=== PATIENT | female | born 1945 | race Caucasian/White ===

== ENCOUNTER 2016-04-11 10:18 | Day surgery (SDC) | payer MEDICARE, OTHER ==
[2016-04-11 10:48] VITALS: BP 156/96; PULSE 70; RESP 18; TEMP 98.7; O2SAT 97
[2016-04-11 11:34] VITALS: BP 180/91; PULSE 67; RESP 18; O2SAT 98
[2016-04-11 11:51] VITALS: BP 166/92; PULSE 67; RESP 18; O2SAT 98
[2016-04-11] MEDS ORDERED: SODIUM BICARBONATE 8.4% INJ 50 ML ONE (12:03)
[2016-04-11] MEDS ORDERED: LIDOCAINE HCL 1% PF 30 ML VIAL ONE (12:03)
--- NOTE | 2016-04-11 12:12 | RADRPT ---
EXAM DATE/TIME: 04/11/2016 10:54 [place] COMPARISON: No previous studies available for comparison. EXTERNAL COMPARISON: INDICATIONS : Left elbow effusion. MEDICAL HISTORY : Hypercholesterolemia. Left radial head fracture. Thyroid disease. SURGICAL HISTORY : Hysterectomy. Knee surgery. ENCOUNTER: Initial ACUITY: 4 - 6 months PAIN SCORE: 3/10 LOCATION: Left elbow. FLUID: Total volume of 2 cc of clear, yellow fluid was removed. Fluid was sent to lab for ordered studies. Post procedure scanning reveals no hematoma or other complication. TECHNIQUE: 1. Ultrasound guidance for needle aspiration. 2. Aspiration. The risks, benefits, and alternatives to ultrasound guided aspiration were explained to the patient i n detail including the risk of bleeding and infection. Written and verbal informed consent was obtai lela. Under direct ultrasound visualization 2 separate punctures were obtained. Material was obtained for culture and crystal analysis. The material in the elbow is thick and very viscous and has the appea lui of gout. CONCLUSION: Uncomplicated ultrasound guided aspiration. Cultures and fluid analysis is pending. Daniel Nolan MD FACR on April 11, 2016 at 12:06 Board Certified Radiologist. This report was verified electronically.
[2016-04-11 13:07] LABS: WBC, SYNOVIAL FLUID 850 /MM3 (0-200)
[2016-04-22] MEDS ORDERED: ERGO1CAP10 PO (15:17)
[2016-04-22] MEDS ORDERED: [UNRECOGNIZED DRUG - CODE] PO (15:17)
[2016-04-22] MEDS ORDERED: NU-I150C PO (15:17)
[2016-06-22] MEDS ORDERED: SERT-129 PO (10:04)
[2016-06-22] MEDS ORDERED: SIMV40TA PO (10:04)
[2016-06-22] MEDS ORDERED: LEVO50TA4 PO (10:04)
== END 2016-04-11 11:54 | disposition home or self-care (01) ==
LOC: HRAD 10:18
PROVIDERS: ATTEND Orthopaedic Surgery Sports Medicine
DX: M25.422 Effusion, left elbow (principal); B95.62 Methicillin resistant Staphylococcus aureus infection as the cause of diseases classified elsewhere
CPT/HCPCS: 10160; 20606; 76942; 86403; 87070; 87186; 87205; 89051; 89060

== ENCOUNTER 2016-04-13 09:26 | Inpatient (IN) | payer MEDICARE, OTHER ==
[~2016-04-13] VITALS: Ht 162.6 cm; Wt 85.2 kg
[2016-04-14] MEDS ORDERED: SIMV40TA PO (09:52)
[2016-04-14] MEDS ORDERED: LEVO50TA4 PO (09:52)
[2016-04-14] MEDS ORDERED: HYDR-3516 PO (09:52)
[2016-04-14] MEDS ORDERED: SERT-129 PO (09:52)
[2016-04-15] MEDS: CHLORHEXIDINE GLUCONATE 4% SOLN 120 ML BTL TOP SCH (07:00)
[2016-04-15] MEDS ORDERED: ceFAZolin 2 GM PREMIX 50 ML IV SCH (07:00)
[2016-04-15] MEDS: POVIDONE IODINE 7.5% SCRUB 118 ML BOTTLE TOP SCH (07:00)
[2016-04-15] MEDS ORDERED: INSULIN HUMAN REGULAR 1,000 UNITS/10 ML VIAL SQ PRN (07:00)
[2016-04-15] MEDS: SODIUM CHLORID 0.9% 500 ML IV SCH ×2 (07:00→23:40)
[2016-04-15] MEDS ORDERED: METOPROLOL TARTRATE 25 MG TAB PO PRN (07:00)
[2016-04-15] MEDS: LEVOTHYROXINE SODIUM 50 MCG TAB PO SCH (07:18)
[2016-04-15] MEDS ORDERED: HYDR-3288 PO (07:23)
[2016-04-15] MEDS ORDERED: MISCELLANEOUS PHARMACY INFORMATION XX ONE (07:30)
[2016-04-15] MEDS ORDERED: ONDANSETRON HCL 4 MG/2 ML VIAL IVP PRN (07:30)
[2016-04-15] MEDS ORDERED: MORPHINE SULFATE 30 MG/30 ML PCA IV SCH (07:30)
[2016-04-15] MEDS ORDERED: diphenhydrAMINE HCL 25 MG CAP PO PRN (07:30)
[2016-04-15] MEDS ORDERED: ACETAMINOPHEN/HYDROcodone 325 MG/7.5 MG TAB PO PRN (07:30)
[2016-04-15] MEDS ORDERED: MORPHINE SULFATE 4 MG/ML INJ IV PUSH PRN (07:30)
[2016-04-15] MEDS ORDERED: Post-op Orders (for Pharmacy) MISC XX ONE (07:30)
[2016-04-15] MEDS ORDERED: SODIUM CHLORIDE 0.9% FLUSH 5 ML FLUSH IVF PRN (07:30)
[2016-04-15] MEDS ORDERED: NALOXONE HCL 0.4 MG/ML AMP IV PRN (07:30)
[2016-04-15] MEDS ORDERED: MISCELLANEOUS NURSING INFORMATION XX PRN (07:30)
[2016-04-15] MEDS ORDERED: MAGNESIUM HYDROXIDE SUSP 30 ML CUP PO PRN (07:30)
[2016-04-15] MEDS ORDERED: IBUP200C PO (07:31)
[2016-04-15 07:34] VITALS: BP 147/84; PULSE 79; RESP 18; TEMP 99.2; O2SAT 97
[2016-04-15] MEDS: LACTATED RINGER'S 1000 ML IV SCH ×2 (07:40→21:09)
[2016-04-15 08:11] LABS: AUTOMATED NEUTROPHIL # 4.8 TH/MM3 (1.8-7.7); BASOPHIL % 0.4 % (0.0-2.0); EOSINOPHIL # 0.1 TH/MM3 (0-0.4); EOSINOPHIL % 1.3 % (0.0-4.0); HEMATOCRIT 30.9 % (35.0-46.0); HEMO FLAGS DIFF FINAL; LYMPH % 21.3 % (9.0-44.0); LYMPHOCYTE # 1.5 TH/MM3 (1.0-4.8); MEAN CELL VOLUME 78.6 FL (80.0-100.0); MEAN CORPUSCULAR HEMOGLOBIN 25.7 PG (27.0-34.0); MEAN CORPUSCULAR HGB CONC 32.7 % (32.0-36.0); MONO % 6.6 % (0.0-8.0); NEUT % 70.4 % (16.0-70.0); PLATELET COUNT 376 TH/MM3 (150-450); RED BLOOD COUNT 3.94 MIL/MM3 (4.00-5.30); RED CELL DISTRIBUTION WIDTH 17.8 % (11.6-17.2); WHITE BLOOD COUNT 6.9 TH/MM3 (4.0-11.0)
[2016-04-15] MEDS ORDERED: GENTAMICIN SULFATE 80 MG/2 ML VIAL ONE (08:59)
[2016-04-15] MEDS: SERTRALINE HCL 100 MG TAB PO SCH (09:00)
[2016-04-15] MEDS: MULTIVITAMINS/MINERALS THERAPEUTIC TAB PO SCH (09:00)
[2016-04-15] MEDS ORDERED: PROPOFOL 200 MG/20 ML AMP IV ONE (10:01)
[2016-04-15] MEDS ORDERED: LACTATED RINGER'S 1000 ML INJ 1,000 ML IV ONE (10:01)
[2016-04-15] MEDS ORDERED: ONDANSETRON HCL 4 MG/2 ML VIAL IV PUSH ONE (10:01)
[2016-04-15] MEDS ORDERED: FAMOTIDINE 20 MG/2 ML VIAL ONE (10:15)
[2016-04-15] MEDS ORDERED: DEXAMETHASONE SOD PHOS 4 MG/ML VIAL ONE (10:15)
[2016-04-15] MEDS ORDERED: MIDAZOLAM HCL 2 MG/2 ML VIAL ONE (10:15)
[2016-04-15] MEDS ORDERED: VANCOMYCIN HCL 1000 MG VIAL ONE (11:07)
[2016-04-15] MEDS ORDERED: SODIUM CHLOR 0.9% 250 ML INJ 250 ML ONE (11:09)
[2016-04-15] MEDS ORDERED: MORPHINE SULFATE 4 MG/ML INJ ONE (11:49)
[2016-04-15] MEDS ORDERED: *morphine SULFATE 8 MG/ML PERIprocedure ONLY ONE ×2 (12:10→12:45)
[2016-04-15] MEDS ORDERED: *ONDANSETRON 4 MG VIAL PERIprocedural Use ONLY ONE (12:17)
[2016-04-15] MEDS ORDERED: DO NOT ADM ANY ANTICOAGULANT DRUGS XX PRN (12:30)
[2016-04-15] MEDS: DEXT 5%-NACL 0.45% 1000 ML INJ 1,000 ML IV SCH ×2 (12:30→22:43)
[2016-04-15] MEDS ORDERED: *HYDROmorphone PF 1 MG VIAL PERIprocedural Use ONLY ONE (13:03)
--- NOTE | 2016-04-15 13:19 | PD.ORT.PN ---
Subjective Post Op Day #: 0 Objective Vitals Vital Signs Date Time Temp Pulse Resp B/P Pulse Ox O2 Delivery O2 Flow Rate FiO2 04/15/16 13:00 85 12 115/52 97 04/15/16 12:45 78 12 160/87 95 04/15/16 12:31 12 04/15/16 12:30 72 12 179/97 97 04/15/16 12:15 78 12 172/100 97 Nasal Cannula 2 04/15/16 12:00 98.1 75 10 171/97 98 Nasal Cannula 2 04/15/16 07:34 99.2 79 18 147/84 97 I/O 04/14/16 04/14/16 04/14/16 04/15/16 04/15/16 04/15/16 07:00 15:00 23:00 07:00 15:00 23:00 Intake Total 1200 ml Balance 1200 ml Intake Oral 200 ml Other 1000 ml Result Diagram: 04/15/16 0722 Assessment & Plan Assessment and Plan s/p I&D L septic elbow Gentle ROM daily dressing changes currently on vanco consulted ID ordered PICC line likely will need IV abx after d/c d/c planning home vs snf f/up dr. vieira 2 weeks Lonnie Murray Apr 15, 2016 13:19
--- NOTE | 2016-04-15 13:20 | HHI.DCPOC ---
Discharge Care Plan Diagnosis: (1) Infection of elbow Your Health Problems Are: Difficulty with ADL Goals to Promote Your Health * To prevent worsening of your condition and complications * To maintain your health at the optimal level Directions to Meet Your Goals Take your medications as prescribed Follow your dietary instruction Follow activity as directed Keep your appointments as scheduled Take your immunizations and boosters as scheduled If your symptoms worsen call your PCP, if no PCP go to Urgent Care Center or Emergency Room Smoking is Dangerous to Your Health. Avoid second hand smoke Call the 24-hour hour crisis hotline for domestic abuse at Lonnie Murray Apr 15, 2016 13:20
--- NOTE | 2016-04-15 13:22 | HHI.FF ---
Face to Face Verification Diagnosis: (1) Infection of elbow Physical Therapy Safety evaluation Additional Instructions s/p I&D L elbow. IV abx. Nursing RN: 3 days/week x 2 weeks Nursing: Dressing changes Dressing Changes: Daily dressing change I have seen patient Nguyen Caro on 04/15/16. My clinical findings support the need for the requested home health care services because: Limited ability to care for self High risk of falls I certify that my clinical findings support that this patient is homebound because: Post-op weakness Unsteady gait/balance Lonnie Murray Apr 15, 2016 13:21
--- NOTE | 2016-04-15 13:40 | EKG ---
Date Performed: 04/15/2016 Time Performed: 07:09:31 PTAGE: 70 years EKG: Sinus rhythm MINIMAL ST DEPRESSION BORDERLINE ECG NO PREVIOUS TRACING DOCTOR: Brooke Kumar Interpretating Date/Time 04/15/2016 13:35:10
[2016-04-15 18:00] VITALS: BP 171/88; PULSE 83; RESP 18; TEMP 98.4; O2SAT 97
[2016-04-15 18:27] VITALS: BP 132/66
[2016-04-15 20:00] VITALS: BP 128/63; PULSE 86; RESP 21; TEMP 99.1; O2SAT 92
[2016-04-15] MEDS: DOCUSATE SODIUM 50 MG/SENNA 8.6 MG TAB PO SCH (21:05)
[2016-04-15] MEDS: SODIUM CHLORIDE 0.9% FLUSH 5 ML FLUSH IVF SCH (21:06)
[2016-04-15] MEDS: PCA - TOTAL MG MORPHINE DELIVERED PER SHIFT SCH (21:08)
--- NOTE | 2016-04-15 21:25 | PD.CONS ---
HPI Service [facility] Consult Requested By Dr. Gold Reason for Consult Medical management Primary Care Physician No Primary Care Physician Diagnoses: History of Present Illness This is a 70-year-old female with past medical history as stated below, who presents with [facility] for an elective incision and debridement of the left elbow. The patient states that this past August she fell over her right knee sustaining a fracture to the right knee and to the left elbow. The patient states that the right knee fracture was operated and healed successfully. However she states that she also had a left elbow fracture which was small at the time was treated conservatively. The patient is originally from [place] and comes out to [place] for the winter time. She states that back in [place] she has an orthopedic surgeon who operated on the left elbow and after the surgery the patient Developing warmth, swelling and erythema in the joint. The patient was then seen and brought in for incision and drainage. The patient states she had fluid drained from the left elbow which in our records showed degenerative 30th increased WBC of 850, 3500 red blood cells and 98% neutrophils. Gram stain developed MRSA. The patient denies any fevers or chills, nausea vomiting, abdominal pain or diarrhea. The patient also denies chest pain, shortness of breath and states that the pain in the left elbow is minimal Review of Systems Other As per history of present illness, other systems reviewed by me and negative. Past Family Social History Allergies: Coded Allergies: *MDRO Multi-Drug Resistant Organism (Verified Adverse Reaction, Unknown, ) MRSA (elbow)-04/11/16 Past Medical History 1. Hypothyroidism. 2. Depression. 3. Hyperlipidemia Past Surgical History 1. Right knee fracture surgical repair. 2. Total abdominal hysterectomy with bilateral salpingo-oophorectomy. 3. Cervical neck fusion of C5-C6 Active Ordered Medications Current Medications Medications (Trade) Dose Ordered Sig/Micah Route Start Time Stop Time Status Last Admin Lactated Ringer's 1,000 ml @ 30 mls/hr Q24H IV 04/15/16 07:00 04/15/16 07:40 (NS 500 ml Inj) 500 ml @ 30 mls/hr [id number] IV 04/15/16 07:00 04/16/16 06:59 (Betadine 7.5% Scrub) 1 applic ONCE TOP 04/15/16 07:00 04/18/16 06:59 04/15/16 07:00 (Hibiclens 4% Top Soln) 1 applic ONCE TOP 04/15/16 07:00 04/18/16 06:59 (Synthroid) 50 mcg DAILY@06 PO 04/15/16 07:18 Sertraline HCl 100 mg 100 mg DAILY PO 04/15/16 09:00 (D5W-1/2 NS 1000 ml Inj) 1,000 ml @ 100 mls/hr Q10H IV 04/15/16 07:17 04/15/16 12:30 (NS Flush) 2 ml UNSCH PRN IVF 04/15/16 07:30 (NS Flush) 2 ml BID IVF 04/15/16 09:00 04/15/16 21:06 (Heide-Colace) 1 tab BID PO 04/15/16 09:00 04/15/16 21:05 (Milk Of Magnesia Liq) 10 ml Q12H PRN PO 04/15/16 07:30 Miscellaneous Information UNSCH PRN XX 04/15/16 07:30 ([place] 7.5-325 Mg) 1 tab Q4H PRN PO 04/15/16 07:30 ([place] 7.5-325 Mg) 2 tab Q6H PRN PO 04/15/16 07:30 (Morphine Inj) 3 mg Q3H PRN IV PUSH 04/15/16 07:30 (Zofran Inj) 4 mg Q4H PRN IVP 04/15/16 07:30 (Theragran M Tab) 1 tab DAILY PO 04/15/16 09:00 (Benadryl) 25 mg Q6H PRN PO 04/15/16 07:30 (Narcan Inj) 0.4 mg UNSCH PRN IV 04/15/16 07:30 (Morphine 1 Mg/ ml GLASS POLISHER) 30 mg UNSCH IV 04/15/16 07:30 04/16/16 07:29 04/15/16 12:31 GLASS POLISHER Dosage Infused (Pha) 1 1 Q8HR .XX 04/15/16 14:00 04/15/16 21:08 (Vancomycin Inj/ NS 250 ml Inj) 250 ml @ 250 mls/hr Q12H IV 04/15/16 23:00 Miscellaneous Information ALL NURSING DEPARTME... UNSCH PRN XX 04/15/16 12:30 04/16/16 12:29 (Pneumovax-23 Inj) 25 mcg ONCE ONCE IM 04/16/16 10:00 04/16/16 10:01 (Ambien) 5 mg HS PRN PO 04/15/16 21:00 Family History Patient denies any family history of diabetes, hypertension, cancer Social History The patient denies smoking. The patient states she drinks alcohol daily. She states she drinks 40 ounces of bourbon every day. The patient is and lives with . The patient has 2 daughters that live at home in [place]. Physical Exam Vital Signs Vital Signs Date Time Temp Pulse Resp B/P Pulse Ox O2 Delivery O2 Flow Rate FiO2 04/15/16 21:08 18 04/15/16 18:27 132/66 04/15/16 18:00 98.4 83 18 171/88 97 04/15/16 17:40 98.5 83 16 151/82 94 Nasal Cannula 2 04/15/16 17:00 82 14 151/82 96 04/15/16 16:00 80 14 121/75 96 04/15/16 15:00 82 12 120/70 97 04/15/16 14:00 79 12 129/73 95 04/15/16 13:30 79 12 145/79 97 04/15/16 13:15 80 12 148/81 94 04/15/16 13:00 85 12 115/52 97 04/15/16 12:45 78 12 160/87 95 04/15/16 12:31 12 04/15/16 12:30 72 12 179/97 97 04/15/16 12:15 78 12 172/100 97 Nasal Cannula 2 04/15/16 12:00 98.1 75 10 171/97 98 Nasal Cannula 2 04/15/16 07:34 99.2 79 18 147/84 97 Physical Exam GENERAL: This is a well-nourished, well-developed patient, in no apparent distress. SKIN: No rashes, ecchymoses or lesions. Cool and dry. HEAD: Atraumatic. Normocephalic. No temporal or scalp tenderness. EYES: Pupils equal round and reactive. Extraocular motions intact. No scleral icterus. No injection or drainage. ENT: Nose without bleeding, purulent drainage or septal hematoma. Throat without erythema, tonsillar hypertrophy or exudate. Uvula midline. Airway patent. NECK: Trachea midline. No JVD or lymphadenopathy. Supple, nontender, no meningeal signs. CARDIOVASCULAR: Regular rate and rhythm without murmurs, gallops, or rubs. RESPIRATORY: Clear to auscultation. Breath sounds equal bilaterally. No wheezes , rales, or rhonchi. GASTROINTESTINAL: Abdomen soft, non-tender, nondistended. No hepato-splenomegaly , or palpable masses. No guarding. MUSCULOSKELETAL: Extremities without clubbing, cyanosis, or edema. There is tenderness to palpation and decreased with range of motion due to pain in the left upper extremity which is wrapped. No calf tenderness. Negative Homans sign bilaterally. NEUROLOGICAL: Awake and alert. Cranial nerves II through XII intact. Motor and sensory grossly within normal limits. Five out of 5 muscle strength in all muscle groups. Normal speech. Laboratory Laboratory Tests Test 04/15/16 07:22 White Blood Count 6.9 Red Blood Count 3.94 Hemoglobin 10.1 Hematocrit 30.9 Mean Corpuscular Volume 78.6 Mean Corpuscular Hemoglobin 25.7 Mean Corpuscular Hemoglobin 32.7 Concent Red Cell Distribution Width 17.8 Platelet Count 376 Mean Platelet Volume 7.5 Neutrophils (%) (Auto) 70.4 Lymphocytes (%) (Auto) 21.3 Monocytes (%) (Auto) 6.6 Eosinophils (%) (Auto) 1.3 Basophils (%) (Auto) 0.4 Neutrophils # (Auto) 4.8 Lymphocytes # (Auto) 1.5 Monocytes # (Auto) 0.5 Eosinophils # (Auto) 0.1 Basophils # (Auto) 0.0 CBC Comment DIFF FINAL Differential Comment Blood Type A POSITIVE Antibody Screen NEGATIVE Blood Bank Comment Result Diagram: 04/15/16721 Imaging EKG reviewed by me shows sinus rhythm at 75 bpm, no ST T changes. Assessment and Plan Problem List: (1) Septic arthritis ICD Code: M00.9 Status: Acute Plan: Patient presents with septic arthritis and MRSA infection of the left elbow Patient status post incision and drainage of the left elbow orthopedic surgery Continue IV vancomycin. I will consult pharmacy to help with dosing. Consultation infectious disease. Pain control as per orthopedic surgery Senna Colace for bowel regimen. (2) MRSA infection ICD Code: A49.02 Status: Acute Plan: ID consultation (3) Hypothyroidism ICD Code: E03.9 Status: Acute Plan: Attending on levothyroxine. Check TSH (4) Hyperlipidemia ICD Code: E78.5 Status: Acute Plan: Check fasting lipid profile. Continue statins. (5) Anxiety ICD Code: F41.9 Status: Acute Plan: Patient has history of anxiety. Continue Zoloft. Assessment and Plan DVT prophylaxis: SCDs. Code Status Full code Discussed Condition With Patient Leonidas Acosta MD Apr 15, 2016 21:25
[2016-04-15] MEDS: VANCOMYCIN INJ 1,000 MG in SODIUM CHLOR 0.9% 250 ML INJ 250 ML IV SCH (22:43)
[2016-04-16] VITALS: BP 118/69; PULSE 93; RESP 20; TEMP 99.5; O2SAT 92
[2016-04-16] MEDS: ZOLPIDEM TARTRATE 5 MG TAB PO PRN (00:24)
[2016-04-16 05:21] LABS: AUTOMATED NEUTROPHIL # 8.1 TH/MM3 (1.8-7.7); BASOPHIL % 0.2 % (0.0-2.0); HEMATOCRIT 26.3 % (35.0-46.0); HEMO FLAGS DIFF FINAL; LYMPH % 13.6 % (9.0-44.0); LYMPHOCYTE # 1.4 TH/MM3 (1.0-4.8); MEAN CELL VOLUME 79.8 FL (80.0-100.0); MEAN CORPUSCULAR HEMOGLOBIN 26.2 PG (27.0-34.0); MEAN CORPUSCULAR HGB CONC 32.9 % (32.0-36.0); MONO % 5.5 % (0.0-8.0); NEUT % 80.7 % (16.0-70.0); PLATELET COUNT 315 TH/MM3 (150-450); RED CELL DISTRIBUTION WIDTH 17.8 % (11.6-17.2); WHITE BLOOD COUNT 10.1 TH/MM3 (4.0-11.0)
[2016-04-16 05:48] LABS: ALT (GPT) 11 U/L (10-53); ANION GAP 6 MEQ/L (5-15); AST (GOT) 10 U/L (15-37); BICARBONATE 28.2 MEQ/L (21.0-32.0); BLOOD UREA NITROGEN 11 MG/DL (7-18); CHLORIDE 103 MEQ/L (98-107); GLOMERULAR FILTRATION RATE 102 ML/MIN (>89); POTASSIUM 3.6 MEQ/L (3.5-5.1); SODIUM (NA) 137 MEQ/L (136-145)
[2016-04-16] MEDS: LEVOTHYROXINE SODIUM 50 MCG TAB PO SCH (05:48)
[2016-04-16] MEDS: DEXT 5%-NACL 0.45% 1000 ML INJ 1,000 ML IV SCH ×2 (05:48→13:17)
[2016-04-16] MEDS: PCA - TOTAL MG MORPHINE DELIVERED PER SHIFT SCH ×3 (05:48→21:02)
[2016-04-16] MEDS: CHLORHEXIDINE GLUCONATE 4% SOLN 120 ML BTL TOP SCH (05:49)
[2016-04-16] MEDS: POVIDONE IODINE 7.5% SCRUB 118 ML BOTTLE TOP SCH (05:49)
[2016-04-16 05:58] LABS: ALKALINE PHOSPHATASE 73 U/L (45-117); HDL CHOLESTEROL 40.8 MG/DL (40.0-60.0); LDL CHOLESTEROL 52 MG/DL (0-99); TOTAL BILIRUBIN ADULT 0.4 MG/DL (0.2-1.0)
[2016-04-16 08:00] VITALS: BP 144/76; PULSE 80; RESP 16; TEMP 99.5; O2SAT 96
[2016-04-16] MEDS: DOCUSATE SODIUM 50 MG/SENNA 8.6 MG TAB PO SCH ×2 (08:10→21:01)
[2016-04-16] MEDS: PRAVASTATIN SOD 80 MG TAB PO SCH (08:10)
[2016-04-16] MEDS: MULTIVITAMINS/MINERALS THERAPEUTIC TAB PO SCH (08:10)
[2016-04-16] MEDS: SERTRALINE HCL 100 MG TAB PO SCH (08:11)
[2016-04-16] MEDS: SODIUM CHLORIDE 0.9% FLUSH 5 ML FLUSH IVF SCH ×2 (08:16→21:00)
--- NOTE | 2016-04-16 08:23 | PD.ORT.PN ---
Subjective Subjective Remarks pt doing well, less pain involving left elbow, no pain involving knee Objective Vitals Vital Signs Date Time Temp Pulse Resp B/P Pulse Ox O2 Delivery O2 Flow Rate FiO2 04/16/16 05:48 18 04/16/16 00:00 99.5 93 20 118/69 92 04/15/16 21:08 18 04/15/16 20:00 99.1 86 21 128/63 92 04/15/16 18:27 132/66 04/15/16 18:00 98.4 83 18 171/88 97 04/15/16 17:40 98.5 83 16 151/82 94 Nasal Cannula 2 04/15/16 17:00 82 14 151/82 96 04/15/16 16:00 80 14 121/75 96 04/15/16 15:00 82 12 120/70 97 04/15/16 14:00 79 12 129/73 95 04/15/16 13:30 79 12 145/79 97 04/15/16 13:15 80 12 148/81 94 04/15/16 13:00 85 12 115/52 97 04/15/16 12:45 78 12 160/87 95 04/15/16 12:31 12 04/15/16 12:30 72 12 179/97 97 04/15/16 12:15 78 12 172/100 97 Nasal Cannula 2 04/15/16 12:00 98.1 75 10 171/97 98 Nasal Cannula 2 I/O 04/15/16 04/15/16 04/15/16 04/16/16 04/16/16 04/16/16 07:00 15:00 23:00 07:00 15:00 23:00 Intake Total 1200 ml 240 ml 120 ml Output Total 300 ml Balance 1200 ml 240 ml -180 ml Intake Oral 200 ml 240 ml 120 ml IV Total 0 ml Other 1000 ml Output Urine Total 300 ml # Voids 2 1 # Bowel Movements 0 0 Result Diagram: 04/16/16 0323 04/16/16 0323 Objective Remarks seen by Dr. Hunter Bateman left elbow dressings intact +NVI Assessment & Plan Assessment and Plan s/p I&D L septic elbow pod # 1 Gentle ROM daily dressing changes currently on vanco consulted ID ordered PICC line likely will need IV abx after d/c d/c planning home vs snf f/up dr. vieira 2 weeks Glenna Kilgore Apr 16, 2016 08:23
[2016-04-16] MEDS: ACETAMINOPHEN/HYDROcodone 325 MG/7.5 MG TAB PO PRN ×2 (09:19→18:29)
[2016-04-16] MEDS ORDERED: PNEUMOCOCCAL POLYVALENT INJ 25 MCG/0.5 ML SYR IM ONE (10:00)
[2016-04-16] MEDS: VANCOMYCIN INJ 1,000 MG in SODIUM CHLOR 0.9% 250 ML INJ 250 ML IV SCH (10:55)
[2016-04-16 12:00] VITALS: BP 139/79; PULSE 72; RESP 18; TEMP 97.5; O2SAT 96
--- NOTE | 2016-04-16 14:36 | HHI.PR ---
Subjective Remarks Follow-up for left septic elbow. She has no acute complaints today. States her pain is controlled. She denies any fevers or chills. Objective Vitals Vital Signs Date Time Temp Pulse Resp B/P Pulse Ox O2 Delivery O2 Flow Rate FiO2 04/16/16 12:00 97.5 72 18 139/79 96 04/16/16 08:00 99.5 80 16 144/76 96 04/16/16 05:48 18 04/16/16 00:00 99.5 93 20 118/69 92 04/15/16 21:08 18 04/15/16 20:00 99.1 86 21 128/63 92 04/15/16 18:27 132/66 04/15/16 18:00 98.4 83 18 171/88 97 04/15/16 17:40 98.5 83 16 151/82 94 Nasal Cannula 2 04/15/16 17:00 82 14 151/82 96 04/15/16 16:00 80 14 121/75 96 04/15/16 15:00 82 12 120/70 97 I/O 04/15/16 04/15/16 04/15/16 04/16/16 04/16/16 04/16/16 07:00 15:00 23:00 07:00 15:00 23:00 Intake Total 1200 ml 240 ml 120 ml 693 ml Output Total 300 ml Balance 1200 ml 240 ml -180 ml 693 ml Intake Oral 200 ml 240 ml 120 ml IV Total 0 ml 693 ml Other 1000 ml Output Urine Total 300 ml # Voids 2 1 # Bowel Movements 0 0 Result Diagram: 04/16/16 0323 04/16/16 0323 Objective Remarks GENERAL: Well-developed well-nourished. In no acute distress. SKIN: Warm and dry. No lesions noted. HEENT: Normocephalic. Pupils equal and round. Mucous membranes pink and moist. CARDIOVASCULAR: Regular rate and rhythm. No murmur appreciated. RESPIRATORY: No accessory muscle use. Clear to auscultation. Breath sounds equal bilaterally. GASTROINTESTINAL: Abdomen soft, non-tender, nondistended. Bowel sounds x4. MUSCULOSKELETAL: Painful ROM of left upper extremity, able to move hand and fingers. No clubbing or cyanosis. No edema. NEUROLOGICAL: Awake and alert. No focal neurological deficits. Moves upper and lower extremities spontaneously. Normal speech. Sensation in both upper extremity grossly intact. PSYCHIATRIC: Appropriate mood and affect; insight and judgment normal. A/P Problem List: (1) Septic arthritis ICD Code: M00.9 Status: Acute Plan: Patient presents with septic arthritis and MRSA infection of the left elbow. Patient status post incision and drainage of the left elbow orthopedic surgery Continue IV vancomycin based on sensitivities from aspiration. Check blood cultures. Consult infectious disease. Pain control as per orthopedic surgery Senna Colace for bowel regimen. (2) MRSA infection ICD Code: A49.02 Status: Acute Plan: Seen on joint aspiration 04/11. Continue antibiotics. ID consulted. (3) Hypothyroidism ICD Code: E03.9 Status: Acute Plan: TSH within normal limits. Continue home levothyroxine. (4) Hyperlipidemia ICD Code: E78.5 Status: Acute Plan: Lipid panel reviewed, well controlled. Continue statin. (5) Anxiety ICD Code: F41.9 Status: Acute Plan: Patient has history of anxiety. Continue Zoloft. (6) Anemia ICD Code: D64.9 Status: Acute Plan: Hemoglobin 10.1 dropped to 8.7 overnight. Possibly postoperative from acute blood loss. No previous labs or comparison. Microcytic. Check iron studies and stool for Hemoccult. Assessment and Plan Written by Wolf Bishop, acting as scribe for Dr. Styles on 04/16/16 at 14:35. Discharge Planning Follow-up ID recommendations. Attending Statement The documentation accurately reflects the work performed [id number] by me on at 14:35. Problem Qualifiers (1) Septic arthritis: Qualified Code: M00.022 - Staphylococcal arthritis of left elbow (2) Hypothyroidism: Qualified Code: E03.9 - Hypothyroidism, unspecified type (3) Hyperlipidemia: Qualified Code: E78.2 - Mixed hyperlipidemia (4) Anemia: Qualified Code: D64.9 - Anemia, unspecified type Wolf Bishop Apr 16, 2016 14:36 Leonidas Acosta MD Apr 24, 2016 00:05
[2016-04-16 16:00] VITALS: BP 125/68; PULSE 80; RESP 17; TEMP 98.4; O2SAT 96
[2016-04-16 17:25] LABS: FERRITIN 65 NG/ML (8-252); TRANSFERRIN IRON PROFILE 202 MG/DL (200-360)
--- NOTE | 2016-04-16 18:31 | MB ---
cc: TRAY ALLISON MD DATE OF CONSULTATION: 04/16/2016. REASON FOR CONSULTATION: MRSA septic arthritis. REQUESTING PHYSICIAN: Dr. Styles. HISTORY OF PRESENT ILLNESS: This is a 70-year-old white female who was admitted to the hospital for incision and drainage of the left elbow because of septic arthritis. The patient presented to her orthopedic doctor with swelling of her left elbow. She has had problems with the left elbow since September 18, 2015 when she fell and sustained a fracture to the right knee and to the left elbow. She had surgery on the left knee and subsequently developed MRSA infection of the knee and the hardware had to be removed in October and she received a course of IV antibiotics. She continued to have problems with the left elbow after that with pain and swelling which would resolve and recur. She came down to [place] for the winter and saw an orthopedic physician and was put on a week of antibiotics in January and after that was followed up. She however continued to have swelling and aspiration of the elbow showed 850 white cells with 98% neutrophils. She was admitted to the hospital and underwent incision and drainage of the wound. A culture was taken from the left elbow effusion and came back with MRSA. The patient is in no acute distress currently. She is afebrile. Blood cultures taken on admission have no growth. She continues to have pain in the left elbow and is requiring pain medications. She denies other symptoms. PAST MEDICAL HISTORY: 1. Hypothyroidism. 2. Hyperlipidemia. 3. Depression. 4. Right knee fracture repair. 5. Cervical neck fusion at C5-6. 6. Total abdominal hysterectomy and bilateral salpingo-oophorectomy. ALLERGIES: 1. Multidrug-resistant organism. 2. No antibiotic allergies. MEDICATIONS: 1. Vancomycin. 2. Pravachol. 3. Ambien. 4. Zoloft. 5. Heide-Colace. 6. Theragran. 7. [place] 7.5. 8. Synthroid. SOCIAL HISTORY: No tobacco use. The patient quit smoking cigarettes 20 years ago. Daily consumption of one alcoholic drink. No illicit drugs. FAMILY HISTORY: Noncontributory. REVIEW OF SYSTEMS: Negative on a ten-point review except for that mentioned history of present illness; namely, pain in the left elbow. PHYSICAL EXAMINATION: GENERAL: She is a pleasant well-developed female in no acute distress. She is awake, alert and oriented. VITAL SIGNS: The vital signs include a temperature of 98.4, blood pressure 125/68, respirations 17, heart rate 80. HEAD, EYES, EARS, NOSE, THROAT: Extraocular movements grossly intact. Pupils reactive to light. No icterus. Oropharynx with no visible lesions. NECK: The neck is supple without adenopathy or swelling. LUNGS: Clear to auscultation. HEART: Regular rate and rhythm without murmurs, rubs or gallops. ABDOMEN: Bowel sounds present, soft, no tenderness appreciated. No palpable masses. RECTAL: Not performed. EXTREMITIES: No clubbing or cyanosis. The left elbow is wrapped in a surgical dressing and there is obvious swelling. SKIN: No rash. NEUROLOGIC: Nonfocal. PSYCHIATRIC: The patient is calm and cooperative. LABORATORY DATA: WBC 10.1, platelets 315,000, hemoglobin 8.7, 80% neutrophils. Creatinine 0.58, BUN 11, sodium 137. Blood cultures show no growth. IMPRESSION: 1. Septic arthritis of the left elbow due to MRSA. 2. Status post left elbow fracture. RECOMMENDATIONS: 1. Continue the vancomycin intravenous for four weeks duration. 2. A PICC line will be inserted for IV antibiotic administration and arrangements will be made for outpatient treatment in a couple of days. 3. Monitor the Vancomycin levels for adjustment of the Vancomycin. Thank you for this consultation. The patient's progress will be monitored and further recommendations will be given on followup. Tray Allison MD FD/VIGNESH /5:38 PM /6:23 PM
[2016-04-16 20:00] VITALS: BP 172/80; PULSE 76; RESP 22; TEMP 97.8; O2SAT 96
[2016-04-17] VITALS: BP 147/73; PULSE 77; RESP 20; TEMP 97.9; O2SAT 95
[2016-04-17] MEDS: DEXT 5%-NACL 0.45% 1000 ML INJ 1,000 ML IV SCH ×2 (00:45→07:49)
[2016-04-17] MEDS: VANCOMYCIN INJ 1,000 MG in SODIUM CHLOR 0.9% 250 ML INJ 250 ML IV SCH ×3 (00:45→23:45)
[2016-04-17 04:00] VITALS: BP 154/81; PULSE 77; RESP 20; TEMP 98.6; O2SAT 95
[2016-04-17] MEDS: PCA - TOTAL MG MORPHINE DELIVERED PER SHIFT SCH ×3 (06:00→20:02)
[2016-04-17] MEDS: LEVOTHYROXINE SODIUM 50 MCG TAB PO SCH (06:00)
[2016-04-17] MEDS: LACTATED RINGER'S 1000 ML IV SCH (06:00)
[2016-04-17] MEDS: POVIDONE IODINE 7.5% SCRUB 118 ML BOTTLE TOP SCH (06:00)
[2016-04-17] MEDS: CHLORHEXIDINE GLUCONATE 4% SOLN 120 ML BTL TOP SCH (06:01)
[2016-04-17] MEDS: ACETAMINOPHEN/HYDROcodone 325 MG/7.5 MG TAB PO PRN (06:04)
[2016-04-17 07:20] LABS: MEAN CELL VOLUME 79.9 FL (80.0-100.0); MEAN CORPUSCULAR HGB CONC 32.6 % (32.0-36.0); PLATELET COUNT 322 TH/MM3 (150-450); RED BLOOD COUNT 3.39 MIL/MM3 (4.00-5.30); RED CELL DISTRIBUTION WIDTH 18.2 % (11.6-17.2); REVIEW FLAG FINAL; WHITE BLOOD COUNT 7.8 TH/MM3 (4.0-11.0)
[2016-04-17] MEDS: MULTIVITAMINS/MINERALS THERAPEUTIC TAB PO SCH (07:43)
[2016-04-17] MEDS: DOCUSATE SODIUM 50 MG/SENNA 8.6 MG TAB PO SCH ×2 (07:44→20:01)
[2016-04-17] MEDS: PRAVASTATIN SOD 80 MG TAB PO SCH (07:44)
[2016-04-17] MEDS: SODIUM CHLORIDE 0.9% FLUSH 5 ML FLUSH IVF SCH ×2 (07:49→20:01)
[2016-04-17] MEDS: SERTRALINE HCL 100 MG TAB PO SCH (07:49)
[2016-04-17 08:00] VITALS: BP 156/77; PULSE 72; RESP 16; TEMP 98.9; O2SAT 96
--- NOTE | 2016-04-17 08:38 | PD.ORT.PN ---
Subjective Subjective Remarks pt doing well, less pain involving left elbow, no pain involving knee Objective Vitals Vital Signs Date Time Temp Pulse Resp B/P Pulse Ox O2 Delivery O2 Flow Rate FiO2 04/17/16 04:00 98.6 77 20 154/81 95 04/17/16 00:00 97.9 77 20 147/73 95 04/16/16 21:02 16 04/16/16 20:00 97.8 76 22 172/80 96 04/16/16 19:29 16 04/16/16 16:00 98.4 80 17 125/68 96 04/16/16 12:00 97.5 72 18 139/79 96 I/O 04/16/16 04/16/16 04/16/16 04/17/16 04/17/16 04/17/16 07:00 15:00 23:00 07:00 15:00 23:00 Intake Total 120 ml 1053 ml 480 ml 1340 ml Output Total 300 ml 1200 ml 400 ml 1300 ml Balance -180 ml -147 ml 80 ml 40 ml Intake Oral 120 ml 360 ml 480 ml 320 ml IV Total 693 ml 1020 ml Output Urine Total 300 ml 1200 ml 400 ml 1300 ml # Voids 1 # Bowel Movements 0 0 0 0 Result Diagram: 04/17/16 0528 04/16/16 0323 Objective Remarks seen by Dr. Hunter Bateman left elbow dressings intact +NVI Assessment & Plan Assessment and Plan s/p I&D L septic elbow pod #2 Gentle ROM daily dressing changes currently on vanco consulted ID ordered PICC line but has to have had 2 days of neg blood cx, if remains no growth, PICC line will be placed Monday likely will need IV abx after d/c d/c planning home vs snf f/u up dr. vieira 2 weeks Glenna Kilgore Apr 17, 2016 08:38
[2016-04-17] MEDS ORDERED: FERROUS SULFATE 325 MG (65 MG ELEMENTAL IRON) TAB PO SCH (09:00)
[2016-04-17] MEDS: FERROUS SULFATE 325 MG (65 MG ELEMENTAL IRON) TAB PO SCH ×2 (11:58→17:23)
[2016-04-17 12:00] VITALS: BP 175/71; PULSE 73; RESP 12; TEMP 98.7; O2SAT 98
[2016-04-17] MEDS ORDERED: cloNIDine HCL 0.1 MG TAB PO PRN (12:00)
[2016-04-17 12:49] LABS: POTASSIUM 3.4 MEQ/L (3.5-5.1)
[2016-04-17 12:50] LABS: VANCOMYCIN TROUGH 15.1 MCG/ML (5.0-10.0)
--- NOTE | 2016-04-17 12:51 | HHI.PR ---
Subjective Remarks Follow-up for septic left elbow. She states her left elbow pain as a soreness. She states is well controlled with current medications. She denies any fevers or chills. She's had a PICC line in the past. Discussed with vascular access, PICC line will be placed after 48 hours of clear blood cultures. She denies any history of hypertension. No PCP in the area, patient is a snowbird. Objective Vitals Vital Signs Date Time Temp Pulse Resp B/P Pulse Ox O2 Delivery O2 Flow Rate FiO2 04/17/16 08:00 98.9 72 16 156/77 96 04/17/16 04:00 98.6 77 20 154/81 95 04/17/16 00:00 97.9 77 20 147/73 95 04/16/16 21:02 16 04/16/16 20:00 97.8 76 22 172/80 96 04/16/16 19:29 16 04/16/16 16:00 98.4 80 17 125/68 96 I/O 04/16/16 04/16/16 04/16/16 04/17/16 04/17/16 04/17/16 07:00 15:00 23:00 07:00 15:00 23:00 Intake Total 120 ml 1053 ml 480 ml 1340 ml Output Total 300 ml 1200 ml 400 ml 1300 ml Balance -180 ml -147 ml 80 ml 40 ml Intake Oral 120 ml 360 ml 480 ml 320 ml IV Total 693 ml 1020 ml Output Urine Total 300 ml 1200 ml 400 ml 1300 ml # Voids 1 # Bowel Movements 0 0 0 0 Result Diagram: 04/17/16 0528 04/16/16 0323 Objective Remarks GENERAL: Well-developed well-nourished. In no acute distress. SKIN: Warm and dry. No lesions noted. HEENT: Normocephalic. Pupils equal and round. Mucous membranes pink and moist. CARDIOVASCULAR: Regular rate and rhythm. No murmur appreciated. RESPIRATORY: No accessory muscle use. Clear to auscultation. Breath sounds equal bilaterally. GASTROINTESTINAL: Abdomen soft, non-tender, nondistended. Bowel sounds x4. MUSCULOSKELETAL: Painful ROM of left elbow, able to move hand and fingers. No clubbing or cyanosis. No edema. NEUROLOGICAL: Awake and alert. No focal neurological deficits. Moves upper and lower extremities spontaneously. Normal speech. Sensation in both upper extremity grossly intact. PSYCHIATRIC: Appropriate mood and affect; insight and judgment normal. A/P Problem List: (1) Septic arthritis ICD Code: M00.9 Status: Acute Plan: Patient presents with septic arthritis and MRSA infection of the left elbow. Patient status post incision and drainage of the left elbow orthopedic surgery Continue IV vancomycin based on sensitivities from aspiration. Blood cultures with no growth for 1 day. Consulted infectious disease, continue vancomycin for [address] PICC line tomorrow if blood cultures clear Pain control as per orthopedic surgery Senna Colace for bowel regimen. (2) MRSA infection ICD Code: A49.02 Status: Acute Plan: Seen on joint aspiration 04/11. Continue antibiotics. ID consulted. (3) Hypothyroidism ICD Code: E03.9 Status: Acute Plan: TSH within normal limits. Continue home levothyroxine. (4) Hyperlipidemia ICD Code: E78.5 Status: Acute Plan: Lipid panel reviewed, well controlled. Continue statin. (5) Anxiety ICD Code: F41.9 Status: Acute Plan: Patient has history of anxiety. Continue Zoloft. (6) Anemia ICD Code: D64.9 Status: Acute Plan: Hemoglobin 10.1 dropped to 8.7. Possibly postoperative from acute blood loss. No previous labs or comparison. Microcytic. Hemoglobin stable at 8.8. Iron studies showed iron deficiency. Hemoccult stool pending Started oral iron replacement (7) HTN (hypertension) ICD Code: I10 Status: Acute Plan: BP is elevated, no prior history. Start low-dose amlodipine. Clonidine as needed. Assessment and Plan Plan of care discussed with Dr. Styles. Discharge Planning Discharge planning with [facility], likely late tomorrow or Monday. Problem Qualifiers (1) Septic arthritis: Qualified Code: M00.022 - Staphylococcal arthritis of left elbow (2) Hypothyroidism: Qualified Code: E03.9 - Hypothyroidism, unspecified type (3) Hyperlipidemia: Qualified Code: E78.2 - Mixed hyperlipidemia (4) Anemia: Qualified Code: D64.9 - Anemia, unspecified type (5) HTN (hypertension): Qualified Code: I10 - Essential hypertension Wolf Bishop Apr 17, 2016 12:51
[2016-04-17] MEDS: amLODIPine BESYLATE 5 MG TAB PO SCH (14:14)
[2016-04-17 16:00] VITALS: BP 158/76; PULSE 78; RESP 18; TEMP 97.9; O2SAT 98
[2016-04-17 20:00] VITALS: BP 151/71; PULSE 89; RESP 22; TEMP 99.9; O2SAT 96
[2016-04-18] VITALS: BP 163/75; PULSE 78; RESP 20; TEMP 98.2; O2SAT 94
[2016-04-18] MEDS: ZOLPIDEM TARTRATE 5 MG TAB PO PRN (00:04)
[2016-04-18] MEDS: ACETAMINOPHEN/HYDROcodone 325 MG/7.5 MG TAB PO PRN ×2 (00:04→09:15)
[2016-04-18] MEDS: PCA - TOTAL MG MORPHINE DELIVERED PER SHIFT SCH ×2 (04:58→14:00)
[2016-04-18] MEDS: LEVOTHYROXINE SODIUM 50 MCG TAB PO SCH (04:58)
[2016-04-18] MEDS: LACTATED RINGER'S 1000 ML IV SCH (04:58)
[2016-04-18 05:37] LABS: HEMATOCRIT 28.4 % (35.0-46.0); MEAN CELL VOLUME 80.3 FL (80.0-100.0); MEAN CORPUSCULAR HEMOGLOBIN 25.8 PG (27.0-34.0); MEAN CORPUSCULAR HGB CONC 32.1 % (32.0-36.0); PLATELET COUNT 344 TH/MM3 (150-450); RED BLOOD COUNT 3.54 MIL/MM3 (4.00-5.30); RED CELL DISTRIBUTION WIDTH 18.1 % (11.6-17.2); REVIEW FLAG FINAL; WHITE BLOOD COUNT 6.4 TH/MM3 (4.0-11.0)
[2016-04-18 06:00] LABS: POTASSIUM 3.5 MEQ/L (3.5-5.1)
--- NOTE | 2016-04-18 06:06 | MP ---
cc: GUSTAVO JOVEL DATE OF SURGERY 04/15/2016 PREOPERATIVE DIAGNOSIS Left elbow infection with osteomyelitis methicillin-resistant Staph aureus. POSTOPERATIVE DIAGNOSIS Left elbow infection with osteomyelitis methicillin-resistant Staph aureus. PROCEDURE Irrigation and debridement of left elbow osteomyelitis with incision, drainage and debridement. SURGEON Dr. Gustavo Jovel REGROOVER Francois Murray PA-C ANESTHESIA General. ESTIMATED BLOOD LOSS 100 cc. TOURNIQUET TIME 0 minutes. COMPLICATIONS None. JUSTIFICATION This patient is a 70-year-old female who sustained previous trauma over 6 months ago including a right patellar fracture and a left radial head fracture. She underwent surgical open reduction, internal fixation out of state for her patellar fracture and did subsequently develop methicillin-resistant Staph aureus infection involving the right knee. She underwent irrigation, debridement, removal of hardware of the right knee but did always complain of chronic pain, swelling and stiffness of the left elbow. She subsequently moved to floor and was evaluated by the undersigned at the [facility]. I performed an MRI which showed an elbow joint effusion as well as bone edema which was potentially suggestive of infection and osteomyelitis. Interventional Radiology was then consulted and an aspiration of the left elbow joint was performed. This has grown out methicillin-resistant Staph aureus. I counseled the patient as to the risks, benefits and alternatives of to the above-named proposed surgical procedure. She did wish to proceed with surgery. PROCEDURE IN DETAIL A written consent was obtained. The patient was identified by name, taken to the operating room, placed supine on the operating room table. General anesthesia was administered as well as 2 grams of IV Ancef and 1 gram of IV vancomycin. The left upper extremity was prepped and draped using isopropyl alcohol, Hibiclens solution and Chloraprep solution. After an appropriate time-out was performed, a longitudinal incision was made over the posterior lateral aspect of the left elbow. The capsule was incised and the elbow joint was opened. There was evidence of infection within the elbow joint as well as infected synovial soft tissue. A 10-blade scalpel was used to perform extensive debridement of all infected tissue. A rongeur and curette was also then used to curette the regions of the distal humerus, ulna and radial head. The wound was thoroughly irrigated sterile saline pulse lavage antibiotic impregnated solution. The capsule was then primarily repaired with #0 running Vicryl suture, the subcutaneous layer with 2-0 Vicryl suture and the skin was closed with Dermabond. Sterile dressing applied. The patient tolerated the procedure well with no intraoperative complication noted. The postoperative plan for this patient will be for her to receive Infectious Disease consultation and prolonged IV antibiotic therapy. At times serial debridements may be required. Francois Murray, physician medical assistant instructor certified, was present during the entire procedure to include patient positioning and the procedure itself. The medical necessity of a physician medical assistant instructor was indicated in this case due to the complexity of the procedure with manipulation of arm and also retraction of muscle, tendon, bone and neurovascular structures. He assisted with debridement as well as wound closure. Gustavo Jovel MD JWJuli/DEVAN /11:45 AM /5:56 AM
[2016-04-18 08:00] VITALS: BP 135/74; PULSE 76; RESP 18; TEMP 98.2; O2SAT 98
[2016-04-18] MEDS: MULTIVITAMINS/MINERALS THERAPEUTIC TAB PO SCH (09:15)
[2016-04-18] MEDS: PRAVASTATIN SOD 80 MG TAB PO SCH (09:16)
[2016-04-18] MEDS: amLODIPine BESYLATE 5 MG TAB PO SCH (09:16)
[2016-04-18] MEDS: DOCUSATE SODIUM 50 MG/SENNA 8.6 MG TAB PO SCH (09:16)
[2016-04-18] MEDS: FERROUS SULFATE 325 MG (65 MG ELEMENTAL IRON) TAB PO SCH ×2 (09:16→11:53)
[2016-04-18] MEDS: SERTRALINE HCL 100 MG TAB PO SCH (09:16)
[2016-04-18] MEDS: SODIUM CHLORIDE 0.9% FLUSH 5 ML FLUSH IVF SCH (09:21)
--- NOTE | 2016-04-18 10:59 | HHI.PR ---
Subjective Remarks No events overnight. VSS. Plan for PICC line. Objective Vitals Vital Signs Date Time Temp Pulse Resp B/P Pulse Ox O2 Delivery O2 Flow Rate FiO2 04/18/16 08:00 98.2 76 18 135/74 98 04/18/16 01:04 16 04/18/16 00:00 98.2 78 20 163/75 94 04/17/16 20:02 16 04/17/16 20:00 99.9 89 22 151/71 96 04/17/16 16:00 97.9 78 18 158/76 98 04/17/16 12:00 98.7 73 12 175/71 98 I/O 04/17/16 04/17/16 04/17/16 04/18/16 04/18/16 04/18/16 07:00 15:00 23:00 07:00 15:00 23:00 Intake Total 1340 ml 800 ml 480 ml 430 ml Output Total 1300 ml 2100 ml 1400 ml 1000 ml Balance 40 ml -1300 ml -920 ml -570 ml Intake Oral 320 ml 800 ml 480 ml 120 ml IV Total 1020 ml 310 ml Output Urine Total 1300 ml 2100 ml 1400 ml 1000 ml # Bowel Movements 0 1 0 0 Result Diagram: 04/18/16 0507 04/18/16 0507 Imaging Last Impressions Chest X-Ray 04/18/16 0000 Signed Impressions: Service Date/Time: Monday, April 18, 2016 15:06 - CONCLUSION: 1. Right- sided PICC line has its tip in good position in the superior vena cava. 2. No acute focal pulmonary infiltrate or pulmonary vascular congestion. Aram Pabon MD Objective Remarks GENERAL: Well-developed well-nourished. In no acute distress. SKIN: Warm and dry. No lesions noted. HEENT: Normocephalic. Pupils equal and round. Mucous membranes pink and moist. CARDIOVASCULAR: Regular rate and rhythm. No murmur appreciated. RESPIRATORY: No accessory muscle use. Clear to auscultation. Breath sounds equal bilaterally. GASTROINTESTINAL: Abdomen soft, non-tender, nondistended. Bowel sounds x4. MUSCULOSKELETAL: Painful ROM of left elbow, able to move hand and fingers. No clubbing or cyanosis. No edema. NEUROLOGICAL: Awake and alert. No focal neurological deficits. Moves upper and lower extremities spontaneously. Normal speech. Sensation in both upper extremity grossly intact. PSYCHIATRIC: Appropriate mood and affect; insight and judgment normal. A/P Problem List: (1) Septic arthritis ICD Code: M00.9 Status: Acute (2) MRSA infection ICD Code: A49.02 Status: Acute (3) Hypothyroidism ICD Code: E03.9 Status: Acute (4) Hyperlipidemia ICD Code: E78.5 Status: Acute (5) Anxiety ICD Code: F41.9 Status: Acute (6) Anemia ICD Code: D64.9 Status: Acute (7) HTN (hypertension) ICD Code: I10 Status: Acute Assessment and Plan (1) Septic arthritis ICD Code: M00.9 Status: Acute Plan: Patient presents with septic arthritis and MRSA infection of the left elbow. Patient status post incision and drainage of the left elbow orthopedic surgery Continue IV vancomycin based on sensitivities from aspiration. Blood cultures with no growth for 1 day. Consulted infectious disease, continue vancomycin for [address] PICC line today if blood cultures clear x 2 days Pain control as per orthopedic surgery Senna Colace for bowel regimen. (2) MRSA infection ICD Code: A49.02 Status: Acute Plan: Seen on joint aspiration 04/11. Continue antibiotics. ID consulted. (3) Hypothyroidism ICD Code: E03.9 Status: Acute Plan: TSH within normal limits. Continue home levothyroxine. (4) Hyperlipidemia ICD Code: E78.5 Status: Acute Plan: Lipid panel reviewed, well controlled. Continue statin. (5) Anxiety ICD Code: F41.9 Status: Acute Plan: Patient has history of anxiety. Continue Zoloft. (6) Anemia ICD Code: D64.9 Status: Acute Plan: Hemoglobin 10.1 dropped to 8.7. Possibly postoperative from acute blood loss. No previous labs or comparison. Microcytic. Hemoglobin stable at 8.8. Iron studies showed iron deficiency. Hemoccult stool pending Started oral iron replacement (7) HTN (hypertension) ICD Code: I10 Status: Acute Plan: BP is elevated, no prior history. Start low-dose amlodipine. Clonidine as needed. Discharge Planning Discharge planning with [facility], likely late today or Monday Cleared to MA from hospitalist. PICC line and infusion abx per ID. Problem Qualifiers (1) Septic arthritis: Qualified Code: M00.022 - Staphylococcal arthritis of left elbow (2) Hypothyroidism: Qualified Code: E03.9 - Hypothyroidism, unspecified type (3) Hyperlipidemia: Qualified Code: E78.2 - Mixed hyperlipidemia (4) Anemia: Qualified Code: D64.9 - Anemia, unspecified type (5) HTN (hypertension): Qualified Code: I10 - Essential hypertension Marielos Montes De Oca MD Apr 18, 2016 10:59
[2016-04-18] MEDS: VANCOMYCIN INJ 1,000 MG in SODIUM CHLOR 0.9% 250 ML INJ 250 ML IV SCH (11:52)
[2016-04-18 12:00] VITALS: BP 151/65; PULSE 71; RESP 16; TEMP 98.4; O2SAT 95
--- NOTE | 2016-04-18 12:53 | PD.ORT.PN ---
Subjective Post Op Day #: 3 Subjective Remarks pain much better since sx. Objective Vitals Vital Signs Date Time Temp Pulse Resp B/P Pulse Ox O2 Delivery O2 Flow Rate FiO2 04/18/16 12:00 98.4 71 16 151/65 95 04/18/16 08:00 98.2 76 18 135/74 98 04/18/16 01:04 16 04/18/16 00:00 98.2 78 20 163/75 94 04/17/16 20:02 16 04/17/16 20:00 99.9 89 22 151/71 96 04/17/16 16:00 97.9 78 18 158/76 98 I/O 04/17/16 04/17/16 04/17/16 04/18/16 04/18/16 04/18/16 07:00 15:00 23:00 07:00 15:00 23:00 Intake Total 1340 ml 800 ml 480 ml 430 ml Output Total 1300 ml 2100 ml 1400 ml 1000 ml Balance 40 ml -1300 ml -920 ml -570 ml Intake Oral 320 ml 800 ml 480 ml 120 ml IV Total 1020 ml 310 ml Output Urine Total 1300 ml 2100 ml 1400 ml 1000 ml # Bowel Movements 0 1 0 0 Result Diagram: 04/18/16 0507 04/18/16 0507 Objective Remarks left elbow dressings intact +NVI edema cap refill Assessment & Plan Ortho Post Op Day #: 3 Problem List: Assessment and Plan s/p I&D L septic elbow pod #3 Gentle ROM daily dressing changes currently on vanco consulted ID ordered PICC line but has to have had 2 days of neg blood cx, if remains no growth, PICC line will be placed Monday likely will need IV abx after d/c d/c planning home ortho stable. cleared for d/c when PICC line placed and abx arranged. f/u up dr. vieira 2 weeks Lonnie Murray Apr 18, 2016 12:53
--- NOTE | 2016-04-18 13:02 | HHI.FF ---
Infusion Therapy Location of Infusion Therapy: Home Health Care IV Infusion Order Patient Information Patient Weight 85.2 kg Diagnosis: (1) Septic arthritis (2) Infection of elbow (3) MRSA infection Coded Allergies: *MDRO Multi-Drug Resistant Organism (Verified Adverse Reaction, Unknown, ) MRSA (elbow)-04/11/16 Administer Medication Vancomycin q 24 hours 1750mg IV Stop Treatment: May 16, 2016 Additional Information Venous access: PICC Line Additional Instructions [x] Peripheral flush and dressing changes per protocol [x] Implanted port and central line service attendant: * Implanted port: 10 ml Normal Saline followed by 5 ml Heparin 100 units/ml Heparin flush after each use and monthly to maintain. [] May leave port accessed during therapy. [] May leave peripheral site accessed for duration of therapy. [x] If patient has SOB or respiratory distress, check oxygen saturation. If less than 90% or clinical signs of respiratory distress, administer oxygen at 2 L/min. via nasal cannula and notify physician. [x] Anaphylaxis/Reaction orders: * Stop infusion. * Keep IV line open with saline flush. * Notify physician. * Monitor vital signs every 15 minutes until symptoms resolve. * Check Oxygen saturation; Oxygen at 2 L/min. via nasal cannula if less than 90% or clinical signs of respiratory distress. * Administer diphenhydramine (Benadryl) 25 mg IV STAT, (unless patient has received as pre-med). May repeat once, if necessary. * Solu-Cortef 250 mg IVP over 30-60 seconds, use 100 mg vials for each dissolution. * Epinephrine (1mg/1 ml) 0.3 mg subcutaneously or IVP now with any signs of respiratory distress. * Check with physician for new additional pre-med orders if patient is re- challenged or re-treated. [x] May remove PICC line when treatment complete, after confirming with Physician. [x] If the patient is admitted to the hospital, the ED, or transferred via [facility] , complete transfer form including medication reconciliation order sheet. Laboratory Tests Weekly Labs: BMP, Vancomycin Trough Jim Rojas MD Apr 18, 2016 13:02
--- NOTE | 2016-04-18 15:02 | HHI.IDPN ---
Note Infectious Disease Note Patient feels okay. No complaints. Afebrile. No significant pain in left elbow. PAST MEDICAL HISTORY: 1. Hypothyroidism. 2. Hyperlipidemia. 3. Depression. 4. Right knee fracture repair. 5. Cervical neck fusion at C5-6. 6. Total abdominal hysterectomy and bilateral salpingo-oophorectomy. ALLERGIES: 1. Multidrug-resistant organism. 2. No antibiotic allergies. MEDICATIONS: Vancomycin. OBJECTIVE: Vital Signs Date Time Temp Pulse Resp B/P Pulse Ox O2 Delivery O2 Flow Rate FiO2 04/18/16 12:00 98.4 71 16 151/65 95 04/18/16 08:00 98.2 76 18 135/74 98 04/18/16 01:04 16 04/18/16 00:00 98.2 78 20 163/75 94 04/17/16 20:02 16 04/17/16 20:00 99.9 89 22 151/71 96 04/17/16 16:00 97.9 78 18 158/76 98 Laboratory Tests Test 04/17/16 04/18/16 05:28 05:07 White Blood Count 7.8 TH/MM3 6.4 TH/MM3 Red Blood Count 3.39 MIL/MM3 3.54 MIL/MM3 Hemoglobin 8.8 GM/DL 9.1 GM/DL Hematocrit 27.0 % 28.4 % Mean Corpuscular Volume 79.9 FL 80.3 FL Mean Corpuscular Hemoglobin 26.0 PG 25.8 PG Mean Corpuscular Hemoglobin 32.6 % 32.1 % Concent Red Cell Distribution Width 18.2 % 18.1 % Platelet Count 322 TH/MM3 344 TH/MM3 Mean Platelet Volume 7.6 FL 7.1 FL Laboratory Tests Test 04/17/16 04/18/16 11:45 05:07 Sodium Level 141 MEQ/L 139 MEQ/L Potassium Level 3.4 MEQ/L 3.5 MEQ/L Chloride Level 104 MEQ/L 103 MEQ/L Carbon Dioxide Level 32.0 MEQ/L 31.0 MEQ/L Anion Gap 5 MEQ/L 5 MEQ/L Blood Urea Nitrogen 10 MG/DL 8 MG/DL Creatinine 0.53 MG/DL 0.50 MG/DL Estimat Glomerular Filtration 113 ML/MIN 121 ML/MIN Rate Random Glucose 93 MG/DL 92 MG/DL Calcium Level 8.4 MG/DL 8.3 MG/DL Microbiology Date/Time Procedure Status Source Growth 04/16/16 16:19 Aerobic Blood Culture - Preliminary Resulted Blood Peripheral NO GROWTH IN 2 DAYS 04/16/16 16:19 Anaerobic Blood Culture - Preliminary Resulted Blood Peripheral NO GROWTH IN 2 DAYS 04/16/16 16:20 Aerobic Blood Culture - Preliminary Resulted Blood Peripheral NO GROWTH IN 2 DAYS 04/16/16 16:20 Anaerobic Blood Culture - Preliminary Resulted Blood Peripheral NO GROWTH IN 2 DAYS 04/17/16 11:10 Stool Occult Blood ([facility]) - Final Complete Stool Stool HEMOCCULT NEGATIVE Vancomycin trough. 15.1. PHYSICAL EXAMINATION: GENERAL: No acute distress. She is awake, alert and oriented. HEENT: Extraocular movements grossly intact. Pupils reactive to light. No icterus. Oropharynx with no visible lesions. NECK: The neck is supple without adenopathy or swelling. LUNGS: Clear to auscultation. HEART: Regular rate and rhythm without murmurs, rubs or gallops. ABDOMEN: Bowel sounds present, soft, no tenderness. EXTREMITIES: No clubbing or cyanosis. The left elbow is wrapped in a surgical dressing. SKIN: No rash. NEUROLOGIC: Nonfocal. PSYCHIATRIC: The patient is calm and cooperative. IMPRESSION: 1. Septic arthritis of the left elbow due to MRSA. 2. Status post left elbow fracture. RECOMMENDATIONS: 1. Continue the vancomycin intravenous until May 16, 2016. initial dose 1750mg IV Q24H at home and follow levels. Discussed with social work case manager. Jim Rojas MD Apr 18, 2016 15:02
--- NOTE | 2016-04-18 16:15 | RADRPT ---
EXAM DATE/TIME: 04/18/2016 15:06 [facility] COMPARISON: No previous studies available for comparison. INDICATIONS : PICC line placement. MEDICAL HISTORY : Hypercholesterolemia. Radial head fracture; thyroid disease SURGICAL HISTORY : Hysterectomy. Knee surgery ENCOUNTER: Initial ACUITY: 1 day PAIN SCORE: 6/10 LOCATION: Bilateral upper chest FINDINGS: A right-sided PICC line has its tip at the junction of the superior vena cava and right atrium. Ther e is no pneumothorax. The heart and mediastinal structures are normal. The pulmonary vascular patte rn is normal. The lungs are clear. Hardware is noted within the cervicothoracic junction. CONCLUSION: 1. Right-sided PICC line has its tip in good position in the superior vena cava. 2. No acute focal pulmonary infiltrate or pulmonary vascular congestion. Aram Pabon MD on April 18, 2016 at 16:08 Board Certified Radiologist. This report was verified electronically.
[2016-04-22] MEDS ORDERED: ERGO1CAP10 PO (15:17)
[2016-04-22] MEDS ORDERED: NU-I150C PO (15:17)
[2016-04-22] MEDS ORDERED: [UNRECOGNIZED DRUG - CODE] PO (15:17)
--- NOTE | 2016-04-25 15:58 | MD ---
cc: GUSTAVO JOVEL ADMISSION DATE: 04/15/2016 DISCHARGE DATE: 04/18/2016 ADMITTING DIAGNOSIS Septic left elbow. DISCHARGE DIAGNOSIS Septic left elbow. HISTORY OF PRESENT ILLNESS Ms. Caro is a 70-year-old female who presented to the [facility] for evaluation by Dr. Gustavo Jovel regarding her severe left elbow pain and swelling. 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 She notes while in [place] she had a slip and fall injuring both her knee and elbow. She had a fracture of both of these areas and states the elbow was treated nonoperatively. When she presented to the office she had erythema, swelling and pain with range of motion to the left elbow. An aspiration was ordered from interventional radiology. Gram stain grew MRSA. While in the office the patient was counseled on her diagnosis and treatment options. The risks, benefits and indications were all discussed. The patient did elect proceed with surgical intervention to include irrigation and debridement of left elbow. Date of surgery 04/15/2016: Irrigation and debridement, left elbow. POST-OP After surgery the patient was admitted to [facility] where she received appropriate medical management, pain control, DVT prophylaxis as well as consultation from Infectious Disease. The patient was placed on IV vancomycin and a PICC line was placed. DISCHARGE Once being discharged from the hospital the patient was cleared to go home where she received home health care. Her antibiotic regimen of vancomycin has been set by Infectious Disease and the antibiotics have been ordered and delivered to her home. The patient is to receive daily dressing changes and has been instructed on proper wound care management. The patient may range of motion as tolerated to the left elbow. She does have a PICC line in place which will be monitored by Home Health Care. She has been provided a follow-up appointment to see Dr. Gustavo Jovel in the office approximately two weeks from her date of surgery. The patient has asked appropriate questions which have all been answered. The patient has been cleared for discharge. Dictated by: Gustavo Murray PA-C MD FRAN Ruiz/SHELLIE /8:18 AM /3:57 PM
[2016-06-22] MEDS ORDERED: SIMV40TA PO (10:04)
[2016-06-22] MEDS ORDERED: SERT-129 PO (10:04)
[2016-06-22] MEDS ORDERED: LEVO50TA4 PO (10:04)
== END 2016-04-18 17:49 | disposition home or self-care (01) | DRG 493 ==
LOC: HSDI 04-15 06:38 → EDSTATUS 04-15 09:00 → N07A 04-15 17:56
PROVIDERS: ADMIT Orthopaedic Surgery Sports Medicine; ATTEND Orthopaedic Surgery Sports Medicine
PROC: 0PBG0ZZ Excision of Left Humeral Shaft, Open Approach (ICD-10-PCS; principal; 2016-04-15 10:19)
DX: M86.9 Osteomyelitis, unspecified (principal); M00.9 Pyogenic arthritis, unspecified; B95.62 Methicillin resistant Staphylococcus aureus infection as the cause of diseases classified elsewhere; D64.9 Anemia, unspecified; E61.1 Iron deficiency; E03.9 Hypothyroidism, unspecified; E78.5 Hyperlipidemia, unspecified; G89.29 Other chronic pain; I10 Essential (primary) hypertension; M19.022 Primary osteoarthritis, left elbow; Z87.891 Personal history of nicotine dependence; Z90.710 Acquired absence of both cervix and uterus; Z98.1 Arthrodesis status; F41.9 Anxiety disorder, unspecified
CPT/HCPCS: 36569; 71010; 76937; 80048; 80053; 80061; 80202; 82272; 82728; 83540; 83550; 84443; 85025; 85027; 86850; 86900; 86901; 87040; 93005; 94150; J0690; J1100; J1170; J1580; J2250; J2270; J2405; J3010; J3370; J7050; J7120